=== PATIENT | male | born 1955 | race African-American/Black ===

== ENCOUNTER 2021-07-13 00:15 | Emergency (ER) | payer OTHER ==
[~2021-07-13] VITALS: Ht 172.7 cm; Wt 107.0 kg
[2021-07-13 01:11] LABS: BASOPHILS % 0.7 % (0.0-2.0); EOSINOPHILS % 3.7 % (0.0-5.0); HEMATOCRIT. 45.4 % (42.0-52.0); HEMOGLOBIN. 15.4 g/dL (14.0-18.0); LYMPHOCYTES % 30.4 % (20.0-50.0); MEAN CORPUSCULAR HEMOGLOBIN 30.4 pg (28.0-32.0); MEAN CORPUSCULAR VOLUME 90.1 fL (80.0-94.0); MEAN PLATELET VOLUME 7.9 fl (7.4-10.4); MONOCYTES % 4.2 % (2.0-8.0); PLATELET 221 x1000/uL (130-400); RED BLOOD CELL COUNT 5.04 mill/uL (4.7-6.1); RED CELL DISTRIBUTION WIDTH 14.1 % (11.6-14.6)
[2021-07-13 01:16] LABS: CHLORIDE 107 mEq/L (98-107)
[2021-07-13] MEDS ORDERED: AMLO5TAB88 MT (01:34)
[2021-07-13] MEDS ORDERED: CARB15DR63 LEFT EAR (01:34)
[2021-07-13] MEDS ORDERED: AMLODIPINE 5MG TABLET PO ONE (01:45)
[2021-07-13 02:05] VITALS: BP 185/105
== END 2021-07-13 02:05 | disposition home or self-care (01) ==
LOC: ER 00:15
DX: H61.22 Impacted cerumen, left ear (principal); I10 Essential (primary) hypertension; Z98.890 Other specified postprocedural states
CPT/HCPCS: 36415; 80053; 85025; 99283

== ENCOUNTER 2024-02-05 10:59 | Emergency (ER) | payer OTHER ==
[~2024-02-05] VITALS: Ht 172.7 cm; Wt 100.0 kg
[~2024-02-05 10:59] MED LIST: AMLO5TAB88 MT; CARB15DR63 LEFT EAR
[2024-02-05 11:00] VITALS: O2SAT 99
[2024-02-05 11:07] VITALS: BP 119/91; PULSE 102; RESP 20; TEMP 98.6; O2SAT 98
[2024-02-05 12:05] LABS: BASOPHILS % 0.9 % (0.0-2.0); EOSINOPHILS % 0.9 % (0.0-5.0); HEMATOCRIT. 42.1 % (42.0-52.0); HEMOGLOBIN. 13.8 g/dL (14.0-18.0); LYMPHOCYTES % 21.2 % (20.0-50.0); MEAN CORPUSCULAR HEMOGLOBIN 28.8 pg (28.0-32.0); MEAN CORPUSCULAR HGB CONC 32.8 g/dL (31.0-37.0); MEAN CORPUSCULAR VOLUME 87.7 fL (80.0-94.0); MEAN PLATELET VOLUME 7.6 fl (7.4-10.4); MONOCYTES % 3.4 % (2.0-8.0); NEUTROPHILS % 73.6 % (40.0-76.0); PLATELET 268 x1000/uL (130-400); RED CELL DISTRIBUTION WIDTH 14.6 % (11.6-14.6); WHITE BLOOD COUNT 7.9 x1000/uL (4.5-11.0)
[2024-02-05 12:12] LABS: CHLORIDE 104 mEq/L (98-107); POTASSIUM 4.2 mEq/L (3.5-5.1); SODIUM 138 mEq/L (136-145)
[2024-02-05 12:13] LABS: CARBON DIOXIDE 30 mEq/L (21-32)
[2024-02-05 12:14] LABS: CALCIUM 9.8 mg/dL (8.7-10.4)
[2024-02-05 12:18] LABS: CREATININE 1.3 mg/dL (0.6-1.3); GLUCOSE 119 mg/dL (70-105)
[2024-02-05 12:19] LABS: UREA NITROGEN BLOOD 17 mg/dL (9-23)
[2024-02-05 12:21] LABS: TROPONIN I HIGH SENSITIVITY 49 ng/L (3.0-53)
[2024-02-05 12:57] LABS: BG BASE EXCESS 0.5 mmol/L (-2.0-2.0); BG CARBOXYHEMOGLOBIN 0.6 % (0.5-1.5); BG DEOXYHEMOGLOBIN 2.7 % (0.0-5.0); BG FRACTION INSPIRED OXYGEN 21; BG HCO3 ACT 24.3 mmol/L (22.0-26.0); BG METHEMOGLOBIN 0.3 % (0.0-1.5); BG OXYGEN SATURATION 97.3 % (92.0-98.5); BG OXYHEMOGLOBIN 96.4 % (94.0-97.0); BG PCO2 36.8 mmHg (35.0-45.0); BG PH 7.438 (7.350-7.450); BG PO2 89.5 mmHg (75.0-100.0); BG SAMPLE SITE RIGHT RADIAL; BG VENT MODE ROOM AIR
== END 2024-02-05 13:46 | disposition home or self-care (01) ==
LOC: ER 13:22
DX: R06.02 Shortness of breath (principal)
CPT/HCPCS: 36415; 36600; 71045; 80048; 82375; 82805; 82962; 83880; 84484; 85025; 93005; 99285

== ENCOUNTER 2024-02-05 21:58 | Inpatient (IN) | payer MEDICARE, OTHER ==
[~2024-02-05] VITALS: Ht 172.7 cm; Wt 104.8 kg
[2024-02-05] MEDS: LABETALOL 5MG/ML 4ML INJ IV ONE (22:55)
[2024-02-05 23:27] LABS: BASOPHILS % 1.1 % (0.0-2.0); CHLORIDE 105 mEq/L (98-107); EOSINOPHILS % 2.4 % (0.0-5.0); HEMATOCRIT. 39.6 % (42.0-52.0); HEMOGLOBIN. 13.3 g/dL (14.0-18.0); LYMPHOCYTES % 24.6 % (20.0-50.0); MEAN CORPUSCULAR HEMOGLOBIN 29.1 pg (28.0-32.0); MEAN CORPUSCULAR HGB CONC 33.5 g/dL (31.0-37.0); MEAN CORPUSCULAR VOLUME 86.9 fL (80.0-94.0); MEAN PLATELET VOLUME 7.8 fl (7.4-10.4); MONOCYTES % 4.2 % (2.0-8.0); NEUTROPHILS % 67.7 % (40.0-76.0); PLATELET 254 x1000/uL (130-400); POTASSIUM 3.3 mEq/L (3.5-5.1); RED BLOOD CELL COUNT 4.56 mill/uL (4.7-6.1); RED CELL DISTRIBUTION WIDTH 14.9 % (11.6-14.6); SODIUM 139 mEq/L (136-145)
[2024-02-05 23:28] LABS: CALCIUM 9.2 mg/dL (8.7-10.4); CARBON DIOXIDE 26 mEq/L (21-32)
[2024-02-05 23:33] LABS: CREATININE 1.4 mg/dL (0.6-1.3); GLUCOSE 116 mg/dL (70-105); UREA NITROGEN BLOOD 18 mg/dL (9-23)
[2024-02-05 23:35] LABS: ALANINE AMINOTRANSFERASE 19 IU/L (10-49); ALBUMIN 4.2 g/dL (3.2-4.8); ASPARTATE AMINOTRANSFERASE 29 IU/L (<34); BILIRUBIN TOTAL 0.6 mg/dL (0.1-1.0); PROTEIN TOTAL 7.2 g/dL (6.0-8.3)
[2024-02-05 23:37] LABS: D-DIMER 0.86 mg/L FEU (<0.50); PROTHROMBIN TIME 11.6 sec (9.6-11.0)
[2024-02-05 23:40] LABS: TROPONIN I HIGH SENSITIVITY 70 ng/L (3.0-53)
[2024-02-06] VITALS (73 sets, daily range): BP systolic 124–195; BP diastolic 64–147; PULSE 69–94; RESP 4–23; TEMP 36.55848–37.1408; O2SAT 92–100
[2024-02-06] MEDS: ASPIRIN 325MG EC TABLET PO NR
[2024-02-06] MEDS: ENOXAPARIN 100MG/ML SYR SUBCUT NR (00:03)
[2024-02-06 01:14] LABS: TROPONIN I HIGH SENSITIVITY 75 ng/L (3.0-53)
[2024-02-06] MEDS: HYDRALAZINE 20MG/ML VIAL IV NR (01:32)
[2024-02-06] MEDS: LABETALOL 5MG/ML 4ML INJ IV NR (03:06)
[2024-02-06] MEDS ORDERED: DOCUSATE SODIUM 100MG CAPSULE PO PRN (03:15)
[2024-02-06] MEDS ORDERED: MAGNESIUM/ALUMINUM HYDROXIDE/SIMETHICONE 30ML UDC PO PRN (03:15)
[2024-02-06] MEDS ORDERED: GUAIFENESIN 200MG/10ML SUGAR FREE UDC PO PRN (03:15)
[2024-02-06] MEDS ORDERED: ONDANSETRON HCL 4MG/2ML INJ IV PRN (03:15)
[2024-02-06] MEDS: FUROSEMIDE 40MG/4ML VIAL IVP NR (03:56)
[2024-02-06] MEDS: IPRATROPIUM/ALBUTEROL 0.5-3(2.5)MG/3ML NEB HHN PRN (04:05)
[2024-02-06 06:27] LABS: CLARITY URINE CLEAR (CLEAR); COLOR URINE YELLOW (YELLOW); GLUCOSE URINE NEGATIVE (NEGATIVE); KETONES URINE NEGATIVE (NEGATIVE); LEUKOCYTE ESTERASE URINE NEGATIVE (NEGATIVE); NITRITE URINE NEGATIVE (NEGATIVE); OCCULT BLOOD URINE NEGATIVE (NEGATIVE); PH URINE 7.5 (4.5-8.0); PROTEIN URINE NEGATIVE (NEGATIVE); UROBILINOGEN URINE 0.2 E.U./dL (0.2-1.0)
[2024-02-06 06:36] LABS: *AMPHETAMINES SCREEN URINE NEGATIVE (NEGATIVE); *BARBITURATES SCREEN URINE NEGATIVE (NEGATIVE); *BENZODIAZEPINES SCREEN URINE NEGATIVE (NEGATIVE); *COCAINE SCREEN URINE NEGATIVE (NEGATIVE)
[2024-02-06 06:37] LABS: CANNABINOID URINE SCREEN NEGATIVE (NEGATIVE); ECSTASY MDMA SCREEN URINE NEGATIVE (NEGATIVE); METHADONE URINE SCREEN NEGATIVE (NEGATIVE); OPIATES URINE SCREEN NEGATIVE (NEGATIVE); PHENCYCLIDINE URINE SCREEN NEGATIVE (NEGATIVE)
[2024-02-06] MEDS: NICARDIPINE 40MG/200ML PREMIX 200 ML IV PRN (06:40)
[2024-02-06 06:55] LABS: CREATINE KINASE MB FRACTION 3.9 ng/mL (0.5-3.6)
[2024-02-06] MEDS ORDERED: IOHEXOL-350 100 ML BOTTLE ONE (07:10)
[2024-02-06] MEDS: POTASSIUM CHLORIDE 20MEQ TABLET SR PO NR (08:46)
[2024-02-06 10:14] LABS: BASOPHILS % 0.8 % (0.0-2.0); EOSINOPHILS % 2.2 % (0.0-5.0); HEMOGLOBIN. 14.2 g/dL (14.0-18.0); LYMPHOCYTES % 25.3 % (20.0-50.0); MEAN CORPUSCULAR VOLUME 87.9 fL (80.0-94.0); NEUTROPHILS % 66.7 % (40.0-76.0); PLATELET 284 x1000/uL (130-400); RED BLOOD CELL COUNT 4.89 mill/uL (4.7-6.1); RED CELL DISTRIBUTION WIDTH 15.2 % (11.6-14.6); WHITE BLOOD COUNT 6.5 x1000/uL (4.5-11.0)
[2024-02-06 10:23] LABS: CALCIUM 9.4 mg/dL (8.7-10.4); CARBON DIOXIDE 26 mEq/L (21-32); CHLORIDE 101 mEq/L (98-107); POTASSIUM 3.3 mEq/L (3.5-5.1); SODIUM 136 mEq/L (136-145)
[2024-02-06 10:28] LABS: CREATININE 1.3 mg/dL (0.6-1.3); GLUCOSE 112 mg/dL (70-105); IRON 54 ug/dL (65-175)
[2024-02-06 10:29] LABS: LDL CHOLESTEROL 190 mg/dL (5-100); TRIGLYCERIDE 112 mg/dL (0-150); UREA NITROGEN BLOOD 15 mg/dL (9-23)
[2024-02-06 10:31] LABS: CHOLESTEROL 233 mg/dL (<200); HDL CHOLESTEROL 46 mg/dL (>55); TOTAL IRON BINDING CAPACITY 330 ug/dl (250-425)
[2024-02-06 11:32] LABS: FOLIC ACID (FOLATE) SERUM > 20.00 ng/mL (>5.38)
[2024-02-06 11:36] LABS: VITAMIN B12 SERUM > 2000 pg/mL (211-911)
[2024-02-06] MEDS: ACETAMINOPHEN 325MG TABLET PO PRN (11:44)
[2024-02-06] MEDS ORDERED: PNEUMOCOCCAL 23-VAL P-SAC VAC 0.5 ML IM ONE (12:30)
[2024-02-06] MEDS: HYDRALAZINE HCL 50MG TABLET PO SCH (14:38)
[2024-02-06] MEDS: NICARDIPINE 50 MG in SODIUM CHLORIDE 0.9% 250 ML IV PRN (17:19)
[2024-02-06] MEDS ORDERED: ENOXAPARIN 40MG/0.4ML SYR SUBCUT SCH (21:00)
[2024-02-06] MEDS: ATORVASTATIN CALCIUM 40MG TABLET PO SCH (21:46)
[2024-02-06] MEDS: FAMOTIDINE 20MG TABLET PO SCH (21:46)
[2024-02-07] VITALS (103 sets, daily range): BP systolic 102–204; BP diastolic 52–171; PULSE 68–96; RESP 6–27; TEMP 36.72516; O2SAT 93–100
[2024-02-07 05:46] LABS: BASOPHILS % 0.9 % (0.0-2.0); CHLORIDE 102 mEq/L (98-107); EOSINOPHILS % 2.1 % (0.0-5.0); HEMATOCRIT 40.3 % (42.0-52.0); HEMATOCRIT. 40.3 % (42.0-52.0); HEMOGLOBIN 13.5 g/dL (14.0-18.0); HEMOGLOBIN. 13.5 g/dL (14.0-18.0); LYMPHOCYTES % 22.2 % (20.0-50.0); MEAN CORPUSCULAR HEMOGLOBIN 29.3 pg (28.0-32.0); MEAN CORPUSCULAR HGB CONC 33.5 g/dL (31.0-37.0); MEAN CORPUSCULAR VOLUME 87.5 fL (80.0-94.0); MEAN PLATELET VOLUME 7.7 fl (7.4-10.4); MONOCYTES % 4.5 % (2.0-8.0); NEUTROPHILS % 70.3 % (40.0-76.0); PLATELET 289 x1000/uL (130-400); POTASSIUM 3.4 mEq/L (3.5-5.1); RED BLOOD CELL COUNT 4.61 mill/uL (4.7-6.1); RED CELL DISTRIBUTION WIDTH 14.9 % (11.6-14.6); SODIUM 136 mEq/L (136-145); WHITE BLOOD COUNT 8.3 x1000/uL (4.5-11.0)
[2024-02-07 05:47] LABS: CALCIUM 9.4 mg/dL (8.7-10.4); CARBON DIOXIDE 26 mEq/L (21-32)
[2024-02-07 05:52] LABS: CREATININE 1.6 mg/dL (0.6-1.3); GLUCOSE 128 mg/dL (70-105); UREA NITROGEN BLOOD 19 mg/dL (9-23)
[2024-02-07 05:54] LABS: T4 FREE 1.11 ng/dL (0.89-1.76)
[2024-02-07 05:55] LABS: PHOSPHORUS 3.9 mg/dL (2.5-4.9); THYROID STIMULATING HORMONE 2.11 uIU/mL (0.55-4.78)
[2024-02-07] MEDS ORDERED: POTASSIUM CHLORIDE 40 MEQ in DEXT 5% WATER 230 ML IV ONE (08:45)
[2024-02-07] MEDS ORDERED: CARBAMIDE PEROXIDE 6.5% OTIC SOLN 15ML LEFT EAR SCH (09:00)
[2024-02-07] MEDS: CLONIDINE 0.1MG TABLET PO SCH (09:00)
[2024-02-07] MEDS: AMLODIPINE 5MG TABLET PO SCH (09:01)
[2024-02-07] MEDS: KCL 20MEQ/100ML X 2 FOR TOTAL KCL 40MEQ/200ML IV SCH (09:58)
[2024-02-07] MEDS: METOPROLOL TARTRATE 25MG TABLET PO SCH (10:32)
[2024-02-07] MEDS: LABETALOL 5MG/ML 4ML INJ IV PRN (17:46)
[2024-02-07] MEDS: HYDRALAZINE HCL 100MG TABLET PO SCH (21:40)
[2024-02-08] VITALS (76 sets, daily range): BP systolic 98–184; BP diastolic 59–120; PULSE 64–89; RESP 4–25; TEMP 36.50292–37.11408; O2SAT 93–100
[2024-02-08 06:10] LABS: CHLORIDE 104 mEq/L (98-107); POTASSIUM 3.9 mEq/L (3.5-5.1); SODIUM 137 mEq/L (136-145)
[2024-02-08 06:11] LABS: BASOPHILS % 0.7 % (0.0-2.0); CARBON DIOXIDE 26 mEq/L (21-32); EOSINOPHILS % 3.4 % (0.0-5.0); HEMATOCRIT. 40.4 % (42.0-52.0); HEMOGLOBIN. 13.5 g/dL (14.0-18.0); LYMPHOCYTES % 28.2 % (20.0-50.0); MEAN CORPUSCULAR HEMOGLOBIN 29.2 pg (28.0-32.0); MEAN CORPUSCULAR HGB CONC 33.4 g/dL (31.0-37.0); MEAN CORPUSCULAR VOLUME 87.2 fL (80.0-94.0); MONOCYTES % 5.2 % (2.0-8.0); NEUTROPHILS % 62.5 % (40.0-76.0); PLATELET 282 x1000/uL (130-400); RED BLOOD CELL COUNT 4.63 mill/uL (4.7-6.1); RED CELL DISTRIBUTION WIDTH 15.1 % (11.6-14.6); WHITE BLOOD COUNT 7.2 x1000/uL (4.5-11.0)
[2024-02-08 06:12] LABS: CALCIUM 9.5 mg/dL (8.7-10.4)
[2024-02-08 06:16] LABS: CREATININE 1.4 mg/dL (0.6-1.3); GLUCOSE 114 mg/dL (70-105); UREA NITROGEN BLOOD 19 mg/dL (9-23)
[2024-02-08] MEDS: SODIUM CHLORIDE 0.45% 1,000 ML IV SCH (08:08)
[2024-02-08 09:16] LABS: CREATINE KINASE 246 IU/L (46-171)
[2024-02-08] MEDS: FUROSEMIDE 40MG TABLET PO SCH (13:46)
[2024-02-08] MEDS: CLONIDINE 0.1MG TABLET PO NR (17:37)
[2024-02-08 19:37] LABS: TROPONIN I HIGH SENSITIVITY 39 ng/L (3.0-53)
[2024-02-08] MEDS: METOPROLOL TARTRATE 50MG TABLET PO SCH (21:00)
[2024-02-09] VITALS (17 sets, daily range): BP systolic 104–188; BP diastolic 72–111; PULSE 60–82; RESP 0–24; TEMP 36.3918–37.11408; O2SAT 92–100
[2024-02-09 05:39] LABS: POTASSIUM 4.4 mEq/L (3.5-5.1)
[2024-02-09 05:40] LABS: CALCIUM 9.5 mg/dL (8.7-10.4)
[2024-02-09 05:45] LABS: CREATININE 1.5 mg/dL (0.6-1.3)
[2024-02-09 06:10] LABS: HEMATOCRIT 39.8 % (42.0-52.0); HEMOGLOBIN 13.2 g/dL (14.0-18.0); MEAN CORPUSCULAR HEMOGLOBIN 29.2 pg (28.0-32.0); MEAN CORPUSCULAR VOLUME 88.4 fL (80.0-94.0); PLATELET 277 x1000/uL (130-400); RED CELL DISTRIBUTION WIDTH 15.3 % (11.6-14.6); WHITE BLOOD COUNT 8.1 x1000/uL (4.5-11.0)
[2024-02-09] MEDS: AMLODIPINE 10MG TABLET PO SCH (08:03)
[2024-02-09] MEDS: HYDROCHLOROTHIAZIDE 25MG TABLET PO SCH (10:48)
[2024-02-09] MEDS: NIFEDIPINE XL 90MG TAB PO SCH (10:48)
[2024-02-10] VITALS: BP 143/59; PULSE 83; RESP 18; TEMP 36.61404; O2SAT 95
[2024-02-10 04:00] VITALS: BP 172/86; PULSE 85; RESP 18; TEMP 35.5584; O2SAT 100
[2024-02-10 08:00] VITALS: BP 167/89; PULSE 80; RESP 16; TEMP 36.55848; O2SAT 96
[2024-02-10] MEDS ORDERED: HYDR25TA MT (10:37)
[2024-02-10] MEDS ORDERED: NIFE90TA60 MT (10:37)
[2024-02-10] MEDS ORDERED: CLON0.1T MT (10:37)
[2024-02-10] MEDS ORDERED: LABE100T9 MT (10:37)
[2024-02-10] MEDS ORDERED: HYDR100T26 MT (10:37)
[2024-02-10 12:00] VITALS: BP 131/95; PULSE 80; RESP 16; TEMP 36.78072; O2SAT 98
[2024-02-10] MEDS: ENOXAPARIN 30MG/0.3ML SYR SUBCUT SCH (13:43)
[2024-02-10 16:21] VITALS: BP 136/60; PULSE 78; TEMP 97.8; O2SAT 98
[2024-02-10] MEDS ORDERED: METOPROLOL TARTRATE 50MG TABLET PO SCH (21:00)
[2024-02-10 21:28] VITALS: BP 109/66; PULSE 64; RESP 19; TEMP 36.00288; O2SAT 97
[2024-02-11] VITALS: BP 95/53; PULSE 53; RESP 19; TEMP 36.114; O2SAT 100
[2024-02-11 04:00] VITALS: BP 110/71; PULSE 130; RESP 18; TEMP 36.33624; O2SAT 100
== END 2024-02-10 17:15 | disposition home or self-care (01) | DRG 280 ==
LOC: ER 21:58 → EDBEDREQ 02-06 00:37 → EDBEDREQTM 02-06 00:37 → EDBEDREQDT 02-06 00:37 → EDBEDREQSVC 02-06 05:20 → CVICU 02-06 07:34 → 7EST 02-09 15:18
PROVIDERS: ADMIT Internal Medicine; ATTEND Internal Medicine
DX: I13.0 Hypertensive heart and chronic kidney disease with heart failure and stage 1 through stage 4 chronic kidney disease, or unspecified chronic kidney disease (principal); I50.33 Acute on chronic diastolic (congestive) heart failure; I21.4 Non-ST elevation (NSTEMI) myocardial infarction; I16.1 Hypertensive emergency; N17.9 Acute kidney failure, unspecified; E78.00 Pure hypercholesterolemia, unspecified; D64.9 Anemia, unspecified; N18.9 Chronic kidney disease, unspecified; E87.6 Hypokalemia; Z87.891 Personal history of nicotine dependence
CPT/HCPCS: 36415; 71045; 71275; 80048; 80053; 80061; 80305; 81003; 82550; 82553; 82607; 82746; 83036; 83540; 83550; 83735; 83880; 84100; 84439; 84443; 84484; 85025; 85027; 85379; 93005; 93306; 93970; 94640; 97162; 99291; J0360; J1650; J1940; J3480; J3490; J7050; Q9967